=== PATIENT | male | born 1995 | race Hispanic/Latino ===

== ENCOUNTER 2022-09-02 21:08 | Emergency (ER) | payer BC ==
[~2022-09-02] VITALS: Ht 175.3 cm; Wt 104.8 kg
[2022-09-03] MEDS ORDERED: ACETAMINOPHEN 500 MG TABLET PO ONE (05:30)
[2022-09-03 05:32] LABS: BASOPHILS % (AUTO) 0.5 % (0.0-5.0); EOSINOPHILS % (AUTO) 1.1 % (0.0-8.0); HEMATOCRIT 45.3 % (42-54); LYMPHOCYTES % (AUTO) 42.3 % (21.0-51.0); MEAN CORPUSCULAR HEMOGLOBIN 27.6 pg (27.0-33.0); MEAN CORPUSCULAR HGB CONC 33.1 g/dL (32.0-36.0); MEAN CORPUSCULAR VOLUME 83.4 fL (79-99); MONOCYTES % (AUTO) 5.7 % (3.0-13.0); NEUTROPHILS % (AUTO) 50.1 % (40.0-77.0); PLATELET COUNT (AUTO) 232 K/uL (130-400); RED BLOOD CELL COUNT(AUTO) 5.43 MIL/uL (4.50-6.20); WHITE BLOOD COUNT (AUTO) 10.1 K/uL (4.8-10.8)
[2022-09-03 05:41] LABS: CREATININE 1.1 mg/dL (0.5-1.5); POTASSIUM 4.7 mmol/L (3.5-5.1)
[2022-09-03 05:45] VITALS: BP 139/67
[2022-09-03] MEDS ORDERED: LISI10TA24 PO (06:33)
== END 2022-09-03 06:46 | disposition home or self-care (01) ==
LOC: EDH 21:08
DX: H92.02 Otalgia, left ear (principal); I10 Essential (primary) hypertension; R53.1 Weakness
CPT/HCPCS: 36415; 71045; 80048; 85025; 93005